=== PATIENT | male | born 1965 | race Caucasian/White ===

== ENCOUNTER 2017-08-10 00:20 | Emergency (ER) | payer OTHER ==
[2017-08-10] MEDS ORDERED: EPINEPHRINE ABBOJECT 1 MG IV ONE (00:21)
[2017-08-10] MEDS ORDERED: Sodium Chloride 0.9% 1000 ML 1,000 ML ONE ×2 (00:24→02:35)
[2017-08-10] MEDS ORDERED: ROCEPHIN 1 Gm-D5w 50 ml Bag** 1 G/50 ML IVPB IV STA (00:27)
--- NOTE | 2017-08-10 00:27 | ERPHSYRPT ---
- History of Present Illness Time Seen by Provider: 08/10/17 00:20 Source: EMS Exam Limitations: clinical condition Physician History: REPORTEDLY PT HAS BEEN CONFUSED TONIGHT AND VOMITING. PT WILL NOT ANSWER ANY QUESTIONS. Allergies/Adverse Reactions: No Known Drug Allergies Allergy (Unverified 06/09/16 11:12) Home Medications: Hydrocodone/APAP 10/325 mg [[place] 10/325 MG Tablet] 1 tab PO QID 04/22/16 [History] Lisinopril/Hydrochlorothiazide [Lisinopril-Hctz 20-12.5 mg Tab] 1 each PO DAILY 06/09/16 [History] Zolpidem Tartrate 10 mg PO HS 06/09/16 [History] PANTOPRAZOLE 40 mg Tablet [Protonix 40MG Tablet] 40 mg PO DAILY 07/02/16 [ History] Hx Tetanus, Diphtheria Vaccination/Date Given: Yes Hx Influenza Vaccination/Date Given: No Hx Pneumococcal Vaccination/Date Given: No - Review of Systems All Other Systems: Unable due to condition (PT WILL NOT ANSWER ANY QUESTIONS.) - Past Medical History Pertinent Past Medical History: Yes Neurological History: No Pertinent History Cardiac History: Hypertension Respiratory History: COPD Endocrine Medical History: No Pertinent History Musculoskeletal History: Osteoarthritis Other Medical History: Gastric bypass surgery - Past Surgical History Past Surgical History: Yes Other Surgical History: gastric - Social History Smoking Status: Current every day smoker How long have you smoked: YRS Exposure to second hand smoke: Yes Alcohol Use: Chronic Drug Use: none Patient Lives Alone: No - Physical Exam General Appearance: other (OBTUNDED) Eye Exam: other (PERRL) Ears, Nose, Throat Exam: dry mucous membranes, pharyngeal erythema Neck Exam: normal inspection Respiratory Exam: lungs clear Cardiovascular Exam: normal heart sounds Gastrointestinal/Abdomen Exam: normal bowel sounds, distention Back Exam: other (OLD BRUISING OVER LOWER BACK) Extremity Exam: No pedal edema Neurologic Exam: other (NO BABINSKI PRESENT; OBTUNDED; NO TREMORS.) - Course Nursing assessment & vital signs reviewed: Yes EKG Interpreted by Me: RATE (91), NORMAL AXIS, NORMAL INTERVALS, ST Elev (V1 - V4) - Radiology Exams Chest X-ray Interpretation: Interpreted by me (NO PNEUMONIA; ETT TUBE NEEDS TO BE INSERTED ABOUT 2 CM MORE.) Ordered Tests: Active Orders 24 hr Category Date Time Status Accucheck STAT Care 08/10/17 00:27 Active Accucheck STAT Care 08/10/17 02:24 Active Relish Maker STAT Care 08/10/17 00:29 Active Catheter-[place] STAT Care 08/10/17 00:27 Active Catheter-[place] STAT Care 08/10/17 00:27 Active EKG-ER Only STAT Care 08/10/17 00:27 Active EKG-ER Only STAT Care 08/10/17 00:50 Active IV Insertion STAT Care 08/10/17 00:27 Active IV Insertion-2nd Peripheral STAT Care 08/10/17 00:27 Active Oxygen-ED Only NASAL CANNULA 2 lpm Care 08/10/17 00:27 Active Pulse Oximetry (ED) STAT Care 08/10/17 00:27 Active ABDOMEN AND PELVIS W/0 CONTRAS [CT] Stat Exams 08/10/17 00:31 Taken CHEST 1 VIEW (PORTABLE) Stat Exams 08/10/17 00:29 Taken HEAD WITHOUT CONTRAST [CT] Stat Exams 08/10/17 03:02 Taken AMYLASE Stat Lab 08/10/17 01:12 Completed ARTERIAL BLOOD GASES Stat Lab 08/10/17 02:18 Completed BLOOD CULTURE Stat Lab 08/10/17 01:12 Received BMP Stat Lab 08/10/17 04:07 Ordered CBC W DIFF Stat Lab 08/10/17 01:12 Completed CMP Stat Lab 08/10/17 01:12 Completed CULTURE,SPUTUM Stat Lab 08/10/17 00:28 Uncollected CULTURE,URINE Stat Lab 08/10/17 00:28 Ordered ETHYL ALCOHOL Stat Lab 08/10/17 01:12 Completed Erythrocyte Sedimentation Rate Stat Lab 08/10/17 01:12 Completed LIPASE Stat Lab 08/10/17 01:12 Completed Lactic Acid Stat Lab 08/10/17 01:28 Completed Lactic Acid Stat Lab 08/10/17 02:18 Results Lactic Acid Stat Lab 08/10/17 03:42 Results MAG [MAGNESIUM] Stat Lab 08/10/17 01:12 Completed Manual Differential NC Stat Lab 08/10/17 01:12 Completed [place] Screen Stat Lab 08/10/17 01:12 Completed PROTIME WITH INR Stat Lab 08/10/17 01:12 Completed PTT Stat Lab 08/10/17 01:12 Completed TROPONIN Q3H Lab 08/10/17 01:12 Completed TROPONIN Q3H Lab 08/10/17 03:45 Received TROPONIN Q3H Lab 08/10/17 06:45 Ordered TROPONIN Q3H Lab 08/10/17 09:45 Ordered TROPONIN Q3H Lab 08/10/17 12:45 Ordered UA Stat Lab 08/10/17 00:28 Uncollected Urine Triage Profile Stat Lab 08/10/17 00:31 Ordered VENOUS BLOOD GAS Stat Lab 08/10/17 01:28 Completed VENOUS BLOOD GAS Stat Lab 08/10/17 04:09 Ordered BiPap/CPAP Assessment STAT RT 08/10/17 00:36 Active Medication Summary Generic Name Dose Route Start Last Admin Trade Name Freq PRN Reason Stop Dose Admin Sodium Chloride 1,000 mls @ 999 mls/hr 08/10/17 00:30 08/10/17 02:16 Sodium Chloride 0.9% 1000 Ml IV 08/10/17 03:30 999 mls/hr .Q1H1M NEGRO Administration Norepinephrine 4,000 mcg/ 504 mls @ 37.8 mls/hr 08/10/17 01:33 08/10/17 01:38 Dextrose IV 09/09/17 01:32 4 mcg/min .[id number] PRN 30.24 mls/hr SEVERE HYPOTENSION Administration Protocol 5 MCG/MIN Epinephrine HCl 1 mg/ Sodium 251 mls @ 15.06 mls/hr 08/10/17 01:54 08/10/17 02:27 Chloride IV 09/09/17 01:53 20 mcg/min .[id number] PRN 301.2 mls/hr SEVERE HYPOTENSION/SHOCK Titration Protocol 1 MCG/MIN Discontinued Medications Generic Name Dose Route Start Last Admin Trade Name Lopezq PRN Reason Stop Dose Admin Calcium Chloride 500 mg 08/10/17 02:32 08/10/17 03:50 Calcium Chloride 10% 1000 Mg IV 08/10/17 02:33 500 mg STAT ONE Administration Dextrose 50 ml 08/10/17 01:50 08/10/17 01:54 D50w 50 Ml Abboject IV 08/10/17 01:51 50 ml STAT ONE Administration Epinephrine HCl Confirm 08/10/17 01:51 Epinephrine 1mg/Ml Amp Administered 08/10/17 01:52 Dose 1 mg .ROUTE .STK-MED ONE Epinephrine HCl Confirm 08/10/17 02:34 Epinephrine 1mg/Ml Amp Administered 08/10/17 02:35 Dose 1 mg .ROUTE .STK-MED ONE Epinephrine HCl Confirm 08/10/17 03:50 Epinephrine 1mg/Ml Amp Administered 08/10/17 03:51 Dose 1 mg .ROUTE .STK-MED ONE Sodium Chloride Confirm 08/10/17 00:24 Sodium Chloride 0.9% 1000 Ml Administered 08/10/17 00:25 Dose 1,000 mls @ ud .ROUTE .STK-MED ONE Ceftriaxone Sodium/Dextrose 1 g in 50 mls @ 100 mls/hr 08/10/17 00:27 00:48 Rocephin 1 Gm-D5w 50 Ml Bag IV 08/10/17 00:56 100 mls/hr STAT STA Administration Ceftriaxone Sodium/Dextrose Confirm 08/10/17 00:46 Rocephin 1 Gm-D5w 50 Ml Bag Administered 08/10/17 00:47 Dose 1 g in 50 mls @ ud IV .STK-MED ONE Sodium Chloride 1,000 mls @ 999 mls/hr 08/10/17 02:06 08/10/17 02:16 Sodium Chloride 0.9% 1000 Ml IV 08/10/17 03:06 999 mls/hr .Q1H1M STA Administration Sodium Chloride 1,000 mls @ 999 mls/hr 08/10/17 02:11 08/10/17 01:51 Sodium Chloride 0.9% 1000 Ml IV 08/10/17 03:11 999 mls/hr .Q1H1M STA Administration Sodium Chloride 1,000 mls @ 999 mls/hr 08/10/17 02:35 08/10/17 01:10 Sodium Chloride 0.9% 1000 Ml IV 08/10/17 03:35 999 mls/hr .Q1H1M STA Administration Sodium Chloride 1,000 mls @ 999 mls/hr 08/10/17 02:36 08/10/17 00:45 Sodium Chloride 0.9% 1000 Ml IV 08/10/17 03:36 999 mls/hr .Q1H1M STA Administration Sodium Chloride Confirm 08/10/17 02:35 Sodium Chloride 0.9% 250 Ml Administered 08/10/17 02:36 Dose 250 mls @ ud IV .STK-MED ONE Sodium Chloride Confirm 08/10/17 03:50 Sodium Chloride 0.9% 250 Ml Administered 08/10/17 03:51 Dose 250 mls @ ud IV .STK-MED ONE Insulin Human Regular 10 unit 08/10/17 01:50 08/10/17 01:59 Novolin R IV 08/10/17 01:51 10 unit STAT ONE Administration Insulin Human Regular Confirm 08/10/17 01:53 Novolin R Administered 08/10/17 01:54 Dose 10 unit .ROUTE .STK-MED ONE Sodium Bicarbonate 50 meq 08/10/17 01:39 08/10/17 01:43 Sodium Bicarbonate 50 Meq/50 Ml Abboject IV 08/10/17 01:40 50 meq STAT ONE Administration Lab/Rad Data: Laboratory Result Diagrams 08/10/17 01:12 08/10/17 01:12 Laboratory Results 08/10/17 08/10/17 08/10/17 Range/Units 03:42 02:18 02:18 WBC (4.0-10.5) K/mm3 RBC (4.1-5.6) M/mm3 Hgb (12.5-18.0) gm/dl Hct (42-50) % MCV (78-100) fl MCH (26-32) pg MCHC (32-36) g/dl RDW (11.5-14.0) % Plt Count (150-450) K/mm3 MPV (6-9.5) fl ESR (0-15) mm/hr INR (0.8-3.0) APTT (24.1-36.1) SECONDS Puncture Site RIGHT BRACHIAL pCO2 52 H (35-45) mmHg pO2 146 H* (75-100) mmHg Base Excess -18.1 L (-2.0-2.0) O2 Saturation 94.0 (94-100) g/dF ABG pH 6.99 L* (7.35-7.45) ABG HCO3 12.5 L* (22-28) ABG O2 Sat (Measured) 95.4 (95-100) % Olegario Test NOT APPLICABLE VBG pH (7.32-7.42) VBG pCO2 at Pat Temp (42-55) mm/Hg VBG pO2 at Pat Temp (25-40) mm/Hg VBG HCO3 (22-28) meq/L VBG O2 Sat (Tessie) (95-100) VBG Base Excess (-2.0-2.0) VBG Hemoglobin VBG Carboxyhemoglobin (0.0-6.9) % T HGB A-a Gradient 502 a/A Ratio 0.23 Hemoglobin 8.9 Carboxyhemoglobin 0.5 (0.0-6.9) % THgb Methemoglobin 1.0 L (1.4-1.5) % POC Potassium (3.5-5.1) Temperature 37.0 C POC O2 Flow Rate 100 % Vent Mode A/C Vent Rate 20 /MIN Tidal Volume 700 cc PEEP 5 cmH2O Sodium (136-145) mEq/L Potassium 7.2 H* (3.5-5.1) mEq/L Chloride (98-107) mEq/L Carbon Dioxide (21-32) mEq/L Anion Gap (5-15) MEQ/L BUN (9-20) mg/dL Creatinine (0.55-1.30) mg/dl Estimated GFR ML/MIN Glucose (70-110) MG/DL Lactic Acid 5.8 H 5.8 H (0.4-2.0) Calcium (8.5-10.1) mg/dL Magnesium (1.8-2.4) mg/dL Total Bilirubin (0.2-1.0) mg/dL AST (15-37) U/L ALT (12-78) U/L Alkaline Phosphatase (46-116) U/L Ammonia (11-32) MMOL/l Troponin I (0.000-0.056) ng/ml Serum Total Protein (6.4-8.2) gm/dL Albumin (3.4-5.0) g/dL Amylase (25-115) U/L Lipase (73-393) U/L Ethyl Alcohol (0.00-0.01) % Monoscreen (Negative) 08/10/17 08/10/17 08/10/17 Range/Units 01:28 01:28 01:12 WBC (4.0-10.5) K/mm3 RBC (4.1-5.6) M/mm3 Hgb (12.5-18.0) gm/dl Hct (42-50) % MCV (78-100) fl MCH (26-32) pg MCHC (32-36) g/dl RDW (11.5-14.0) % Plt Count (150-450) K/mm3 MPV (6-9.5) fl ESR (0-15) mm/hr INR (0.8-3.0) APTT (24.1-36.1) SECONDS Puncture Site pCO2 (35-45) mmHg pO2 (75-100) mmHg Base Excess (-2.0-2.0) O2 Saturation (94-100) g/dF ABG pH (7.35-7.45) ABG HCO3 (22-28) ABG O2 Sat (Measured) (95-100) % Olegario Test VBG pH 6.93 L* (7.32-7.42) VBG pCO2 at Pat Temp 67 H* (42-55) mm/Hg VBG pO2 at Pat Temp 41 H (25-40) mm/Hg VBG HCO3 14.1 L* (22-28) meq/L VBG O2 Sat (Tessie) 45.5 L (95-100) VBG Base Excess -18.1 L (-2.0-2.0) VBG Hemoglobin 10.0 VBG Carboxyhemoglobin 1.3 (0.0-6.9) % T HGB A-a Gradient a/A Ratio Hemoglobin Carboxyhemoglobin (0.0-6.9) % THgb Methemoglobin (1.4-1.5) % POC Potassium 7.0 H* (3.5-5.1) Temperature C POC O2 Flow Rate % Vent Mode Vent Rate /MIN Tidal Volume cc PEEP cmH2O Sodium (136-145) mEq/L Potassium (3.5-5.1) mEq/L Chloride (98-107) mEq/L Carbon Dioxide (21-32) mEq/L Anion Gap (5-15) MEQ/L BUN (9-20) mg/dL Creatinine (0.55-1.30) mg/dl Estimated GFR ML/MIN Glucose (70-110) MG/DL Lactic Acid 6.4 H (0.4-2.0) Calcium (8.5-10.1) mg/dL Magnesium (1.8-2.4) mg/dL Total Bilirubin (0.2-1.0) mg/dL AST (15-37) U/L ALT (12-78) U/L Alkaline Phosphatase (46-116) U/L Ammonia (11-32) MMOL/l Troponin I (0.000-0.056) ng/ml Serum Total Protein (6.4-8.2) gm/dL Albumin (3.4-5.0) g/dL Amylase (25-115) U/L Lipase (73-393) U/L Ethyl Alcohol < 0.010 (0.00-0.01) % Monoscreen (Negative) 08/10/17 08/10/17 08/10/17 Range/Units 01:12 01:12 01:12 WBC (4.0-10.5) K/mm3 RBC (4.1-5.6) M/mm3 Hgb (12.5-18.0) gm/dl Hct (42-50) % MCV (78-100) fl MCH (26-32) pg MCHC (32-36) g/dl RDW (11.5-14.0) % Plt Count (150-450) K/mm3 MPV (6-9.5) fl ESR (0-15) mm/hr INR (0.8-3.0) APTT (24.1-36.1) SECONDS Puncture Site pCO2 (35-45) mmHg pO2 (75-100) mmHg Base Excess (-2.0-2.0) O2 Saturation (94-100) g/dF ABG pH (7.35-7.45) ABG HCO3 (22-28) ABG O2 Sat (Measured) (95-100) % Olegario Test VBG pH (7.32-7.42) VBG pCO2 at Pat Temp (42-55) mm/Hg VBG pO2 at Pat Temp (25-40) mm/Hg VBG HCO3 (22-28) meq/L VBG O2 Sat (Tessie) (95-100) VBG Base Excess (-2.0-2.0) VBG Hemoglobin VBG Carboxyhemoglobin (0.0-6.9) % T HGB A-a Gradient a/A Ratio Hemoglobin Carboxyhemoglobin (0.0-6.9) % THgb Methemoglobin (1.4-1.5) % POC Potassium (3.5-5.1) Temperature C POC O2 Flow Rate % Vent Mode Vent Rate /MIN Tidal Volume cc PEEP cmH2O Sodium (136-145) mEq/L Potassium (3.5-5.1) mEq/L Chloride (98-107) mEq/L Carbon Dioxide (21-32) mEq/L Anion Gap (5-15) MEQ/L BUN (9-20) mg/dL Creatinine (0.55-1.30) mg/dl Estimated GFR ML/MIN Glucose (70-110) MG/DL Lactic Acid (0.4-2.0) Calcium (8.5-10.1) mg/dL Magnesium (1.8-2.4) mg/dL Total Bilirubin (0.2-1.0) mg/dL AST (15-37) U/L ALT (12-78) U/L Alkaline Phosphatase (46-116) U/L Ammonia 259 H (11-32) MMOL/l Troponin I < 0.017 (0.000-0.056) ng/ml Serum Total Protein (6.4-8.2) gm/dL Albumin (3.4-5.0) g/dL Amylase (25-115) U/L Lipase (73-393) U/L Ethyl Alcohol (0.00-0.01) % Monoscreen NEGATIVE (Negative) 08/10/17 08/10/17 08/10/17 Range/Units 01:12 01:12 01:12 WBC (4.0-10.5) K/mm3 RBC (4.1-5.6) M/mm3 Hgb (12.5-18.0) gm/dl Hct (42-50) % MCV (78-100) fl MCH (26-32) pg MCHC (32-36) g/dl RDW (11.5-14.0) % Plt Count (150-450) K/mm3 MPV (6-9.5) fl ESR 64 H (0-15) mm/hr INR (0.8-3.0) APTT (24.1-36.1) SECONDS Puncture Site pCO2 (35-45) mmHg pO2 (75-100) mmHg Base Excess (-2.0-2.0) O2 Saturation (94-100) g/dF ABG pH (7.35-7.45) ABG HCO3 (22-28) ABG O2 Sat (Measured) (95-100) % Olegario Test VBG pH (7.32-7.42) VBG pCO2 at Pat Temp (42-55) mm/Hg VBG pO2 at Pat Temp (25-40) mm/Hg VBG HCO3 (22-28) meq/L VBG O2 Sat (Tessie) (95-100) VBG Base Excess (-2.0-2.0) VBG Hemoglobin VBG Carboxyhemoglobin (0.0-6.9) % T HGB A-a Gradient a/A Ratio Hemoglobin Carboxyhemoglobin (0.0-6.9) % THgb Methemoglobin (1.4-1.5) % POC Potassium (3.5-5.1) Temperature C POC O2 Flow Rate % Vent Mode Vent Rate /MIN Tidal Volume cc PEEP cmH2O Sodium (136-145) mEq/L Potassium (3.5-5.1) mEq/L Chloride (98-107) mEq/L Carbon Dioxide (21-32) mEq/L Anion Gap (5-15) MEQ/L BUN (9-20) mg/dL Creatinine (0.55-1.30) mg/dl Estimated GFR ML/MIN Glucose (70-110) MG/DL Lactic Acid (0.4-2.0) Calcium (8.5-10.1) mg/dL Magnesium 2.3 (1.8-2.4) mg/dL Total Bilirubin (0.2-1.0) mg/dL AST (15-37) U/L ALT (12-78) U/L Alkaline Phosphatase (46-116) U/L Ammonia (11-32) MMOL/l Troponin I (0.000-0.056) ng/ml Serum Total Protein (6.4-8.2) gm/dL Albumin (3.4-5.0) g/dL Amylase 133 H (25-115) U/L Lipase 39 L (73-393) U/L Ethyl Alcohol (0.00-0.01) % Monoscreen (Negative) 08/10/17 08/10/17 08/10/17 Range/Units 01:12 01:12 01:12 WBC 15.4 H (4.0-10.5) K/mm3 RBC 3.17 L (4.1-5.6) M/mm3 Hgb 9.4 L (12.5-18.0) gm/dl Hct 29.4 L (42-50) % MCV 92.7 (78-100) fl MCH 29.6 (26-32) pg MCHC 32.0 (32-36) g/dl RDW 15.0 H (11.5-14.0) % Plt Count 296 (150-450) K/mm3 MPV 10.6 H (6-9.5) fl ESR (0-15) mm/hr INR 1.24 (0.8-3.0) APTT 27.1 (24.1-36.1) SECONDS Puncture Site pCO2 (35-45) mmHg pO2 (75-100) mmHg Base Excess (-2.0-2.0) O2 Saturation (94-100) g/dF ABG pH (7.35-7.45) ABG HCO3 (22-28) ABG O2 Sat (Measured) (95-100) % Olegario Test VBG pH (7.32-7.42) VBG pCO2 at Pat Temp (42-55) mm/Hg VBG pO2 at Pat Temp (25-40) mm/Hg VBG HCO3 (22-28) meq/L VBG O2 Sat (Tessie) (95-100) VBG Base Excess (-2.0-2.0) VBG Hemoglobin VBG Carboxyhemoglobin (0.0-6.9) % T HGB A-a Gradient a/A Ratio Hemoglobin Carboxyhemoglobin (0.0-6.9) % THgb Methemoglobin (1.4-1.5) % POC Potassium (3.5-5.1) Temperature C POC O2 Flow Rate % Vent Mode Vent Rate /MIN Tidal Volume cc PEEP cmH2O Sodium 130 L (136-145) mEq/L Potassium 8.1 H* (3.5-5.1) mEq/L Chloride 84 L (98-107) mEq/L Carbon Dioxide 17.8 L (21-32) mEq/L Anion Gap 35.8 H (5-15) MEQ/L BUN 114 H (9-20) mg/dL Creatinine 12.05 H (0.55-1.30) mg/dl Estimated GFR 5 ML/MIN Glucose 53 L (70-110) MG/DL Lactic Acid (0.4-2.0) Calcium 7.3 L (8.5-10.1) mg/dL Magnesium (1.8-2.4) mg/dL Total Bilirubin 0.50 (0.2-1.0) mg/dL AST 48 H (15-37) U/L ALT 20 (12-78) U/L Alkaline Phosphatase 82 (46-116) U/L Ammonia (11-32) MMOL/l Troponin I (0.000-0.056) ng/ml Serum Total Protein 7.7 (6.4-8.2) gm/dL Albumin 2.6 L (3.4-5.0) g/dL Amylase (25-115) U/L Lipase (73-393) U/L Ethyl Alcohol (0.00-0.01) % Monoscreen (Negative) - Progress Progress Note: 08/10/17 03:31 ~ 0250 REASSESSMENT: BP=72/34, P=90, R=20(VENT), OXYGEN [id number]=867%, T=97.7 DEGREES, NO CARDIAC RUB OR GALLOP, LUNGS CLEAR, CAPILLARY REFILL IS BETWEEN 2 & 3 SECONDS, DP & RADIAL PULSES +1 BILATERALLY, SKIN IS COOL AT PERIPHERY. Discussed with .: Other (SPOKE WITH DR NORTON(REPRODUCTION ARTIST AT [facility])([id number]) WHO ACCEPTED PT FOR TRANSFER TO [facility] A DIRECT ADMISSION.) - Departure Time of Disposition: 04:13 Departure Disposition: Transfer ([facility]) Clinical Impression: Cardiopulmonary arrest with successful resuscitation, HEPATIC ENCEPHALOPATHY, HYPERKALEMIA, HTN, ARTHRITIS, ACUTE RENAL FAILURE, COPD Condition: Serious Critical Care Time: Yes Critical Care Time(excluding separately billable procedures): 30-74 minutes Referrals: SAMM WHITLEY MD [Primary Care Provider] -
[2017-08-10] MEDS ORDERED: ROCEPHIN 1 Gm-D5w 50 ml Bag** 1 G/50 ML IVPB IV ONE (00:46)
[2017-08-10] MEDS: Sodium Chloride 0.9% 1000 ML 1,000 ML IV SCH ×2 (00:50→02:16)
[2017-08-10 01:22] LABS: Granulocyte Absolute (ANC) 8.41 (1.4-6.9); Hematocrit 29.4 % (42-50); Hemoglobin 9.4 gm/dl (12.5-18.0); Mean Cell Volume 92.7 fl (78-100); Mean Platelet Volume 10.6 fl (6-9.5); Platelet Count 296 K/mm3 (150-450); Red Blood Count 3.17 M/mm3 (4.1-5.6); White Blood Count 15.4 K/mm3 (4.0-10.5)
[2017-08-10 01:24] LABS: Mean Corpuscular Hemoglobin 29.6 pg (26-32)
[2017-08-10 01:30] LABS: INR 1.24 (0.8-3.0)
[2017-08-10 01:32] LABS: PTT 27.1 SECONDS (24.1-36.1)
[2017-08-10] MEDS ORDERED: LEVOPHED 4 MG/4 ML 4,000 MCG in Dextrose 5%/Water IV Soln. 500 ML 500 ML IV PRN (01:33)
[2017-08-10 01:39] LABS: AMYLASE 133 U/L (25-115); LIPASE 39 U/L (73-393)
[2017-08-10] MEDS ORDERED: SODIUM BICARBONATE 50 MEQ/50 ML ABBOJECT IV ONE ×2 (01:39→04:33)
[2017-08-10 01:41] LABS: ALBUMIN 2.6 g/dL (3.4-5.0); ANION GAP 35.8 MEQ/L (5-15); BILIRUBIN,TOTAL 0.5 mg/dL (0.2-1.0); Calcium 7.3 mg/dL (8.5-10.1); Carbon Dioxide 17.8 mEq/L (21-32); Creatinine 1 12.05 mg/dl (0.55-1.30); Total Protein 7.7 gm/dL (6.4-8.2)
[2017-08-10] MEDS ORDERED: D50W 50 ml Abboject IV ONE ×2 (01:50→04:32)
[2017-08-10] MEDS ORDERED: NovoLIN R IV ONE (01:50)
[2017-08-10] MEDS ORDERED: EPINEPHRINE 1MG/ML AMP ONE ×4 (01:51→04:36)
[2017-08-10] MEDS ORDERED: NovoLIN R ONE (01:53)
[2017-08-10] MEDS ORDERED: EPINEPHRINE IV PRN (01:54)
[2017-08-10] MEDS ORDERED: SODIUM CHLORIDE 0.9% IV PRN (01:54)
[2017-08-10 01:58] LABS: Potassium 8.1 mEq/L (3.5-5.1)
[2017-08-10] MEDS ORDERED: Sodium Chloride 0.9% 1000 ML 1,000 ML IV STA ×4 (02:06→02:36)
[2017-08-10 02:25] LABS: A-aADO2 502; ABG HEMOGLOBIN 8.9; ABG POTASSIUM 7.2 (3.5-5.1); ABG SITE RIGHT BRACHIAL; ARTERIAL BLD GAS O2 SATURATION 95.4 % (95-100); ARTERIAL BLD GAS TIDAL VOLUME 700 cc; ARTERIAL BLOOD GAS BASE EXCESS -18.1 (-2.0-2.0); ARTERIAL BLOOD GAS FIO2 100 %; ARTERIAL BLOOD GAS PCO2 52 mmHg (35-45); ARTERIAL BLOOD GAS PEEP 5 cmH2O; ARTERIAL BLOOD GAS PO2 146 mmHg (75-100); ARTERIAL BLOOD GAS VENT MODE A/C; ARTERIAL BLOOD GAS VENT RATE 20 /MIN; ARTERIAL BLOOD GAS pH 6.99 (7.35-7.45); CARBOXYHEMOGLOBIN 0.5 % THgb (0.0-6.9); HCO3- 12.5 (22-28); paO2 pAO1 0.23
[2017-08-10 02:28] LABS: Lactic Acid 5.8 (0.4-2.0)
[2017-08-10 02:29] LABS: VBG BASE EXCESS -18.1 (-2.0-2.0); VBG CARBOXYHEMOGLOBIN 1.3 % T HGB (0.0-6.9); VBG HCO3- 14.1 meq/L (22-28); VBG O2 SATURATION 45.5 (95-100); VBG pH 6.93 (7.32-7.42)
[2017-08-10 02:30] LABS: Lactic Acid 6.4 (0.4-2.0)
[2017-08-10] MEDS ORDERED: CALCIUM CHLORIDE 10% 1000 MG IV ONE ×2 (02:32→04:40)
[2017-08-10] MEDS ORDERED: Sodium Chloride 0.9% 250 ML 250 ML IV ONE ×2 (02:35→03:50)
[2017-08-10 03:49] LABS: Lactic Acid 5.8 (0.4-2.0)
[2017-08-10 04:28] LABS: ANION GAP 29.6 MEQ/L (5-15); Carbon Dioxide 16.3 mEq/L (21-32); Creatinine 1 11.15 mg/dl (0.55-1.30)
[2017-08-10 04:34] LABS: Potassium 7.8 mEq/L (3.5-5.1)
[2017-08-10] MEDS ORDERED: CALCIUM CHLORIDE 10% 1000 MG ONE (04:41)
[2017-08-10 05:57] LABS: BAND 21 % (0.0-2.0); Lymphocytes 30 % (24-44); Monocyte 24 % (0.0-12.0); Neutrophils 25 % (36.-66.); Platelet Estimate NORMAL (NORMAL); Polychromasia 1+; Total Cells Counted 100
[2017-08-10 05:58] LABS: Toxic Granulation 1+
[2017-08-10 07:15] VITALS: BP 89/33; PULSE 106; O2SAT 93
--- NOTE | 2017-08-10 09:38 | XRAY ---
Indication: Unresponsive. Possible sepsis. Hepatic disease. Comparison: April 25, 2016. Portable chest less inflated with new left upper lung infiltrate, right mid peripheral fibrosis/scarring, and partially visualized endotracheal tube tip 6 cm above the laura. Also CT proven bibasilar airspace disease/consolidations. Remaining heart, lungs, and bony thorax unremarkable.
--- NOTE | 2017-08-10 09:40 | XRAY ---
Indication: Altered mental status. Hepatic failure. Multiple contiguous axial images obtained through the head without contrast. Comparison: None Several images slightly degraded by motion artifact. No acute intracranial hemorrhage, abnormal extra-axial fluid collection, or mass effect. Fourth ventricle is midline without hydrocephalus. Gutierrez-white matter differential is preserved. Bony calvarium intact. There is moderate mucosal thickening of the visualized paranasal sinuses with bilateral sphenoid sinus fluid leveling. Impression: Motion artifact. No gross acute intracranial abnormalities. Incidental paranasal sinus disease. Comment: Preliminary interpretation was made by [facility]. No discrepancy. CTDI 59.80
[2017-08-10 14:18] LABS: Pathologist Review E
--- NOTE | 2017-08-12 11:42 | XRAY ---
Indication: Abdominal pain and distention. Emesis. Multiple contiguous axial images obtained through the abdomen and pelvis without contrast as ordered. Comparison: June 19, 2016. Lung bases demonstrates new bibasilar patchy airspace disease with consolidations. Stable 13 mm left lower lobe noncalcified nodule. Heart is not enlarged. Distal esophagus is now mildly fluid distended presumed from reflux. Again previous gastric bypass surgery. Small and large bowel loops are now abnormally fluid distended with fluid leveling. Small bowel loop distention up to 4.5 cm and ascending colonic distention up to 6 cm. No transition point identified. Findings either ileus versus enterocolitis. Mild/early obstruction not completely excluded. No free fluid/air. Diffuse fatty liver. New Keane catheter with balloon tip in the urinary bladder. Lack of IV contrast precludes evaluation of previous reported renal cysts. Remaining liver, gallbladder pancreas, spleen, adrenal glands, kidneys, ureters, and bladder appear unremarkable for noncontrast exam. Stable mild aortoiliac calcifications without AAA. Osseous structures intact again with mild degenerative changes throughout the spine. Impression: 1. Abnormal fluid distended small and large bowel loops as detailed. Rule out ileus versus enterocolitis versus mild/early obstruction. 2. New bibasilar airspace disease. Rule out aspiration. 3. Stable 13 mm left lower lobe noncalcified nodule. Again recommend follow-up per Fleischner guidelines. 4. Fluid in the distal esophagus presumed from gastroesophageal reflux. 5. Fatty liver. Comment: Preliminary interpretation was made by C. No critical discrepancy. CT DI 22.61
== END 2017-08-10 05:40 | disposition short-term general hospital (02) ==
LOC: ED 00:20
DX: K72.90 Hepatic failure, unspecified without coma (principal); I46.9 Cardiac arrest, cause unspecified; N17.9 Acute kidney failure, unspecified; E87.5 Hyperkalemia; I10 Essential (primary) hypertension; M19.90 Unspecified osteoarthritis, unspecified site; J44.9 Chronic obstructive pulmonary disease, unspecified; K56.609 Unspecified intestinal obstruction, unspecified as to partial versus complete obstruction
CPT/HCPCS: 31500; 36000; 36415; 36600; 51702; 70450; 71045; 74176; 80048; 80053; 82140; 82150; 82375; 82803; 82805; 82962; 83605; 83690; 83735; 84484; 85025; 85610; 85652; 85730; 86308; 87040; 93005; 93041; 94002; 94799; 96360; 96365; 96366; 96367; 96374; 96375; 99291; 99292; G0481; J0171; J0696; A9270-GY